=== PATIENT | male | born 1950 | race Caucasian/White ===

== ENCOUNTER 2024-03-22 14:35 | Emergency (ER) | payer MEDICARE, OTHER ==
[~2024-03-22] VITALS: Ht 170.2 cm; Wt 102.1 kg
[2024-03-22] MEDS ORDERED: APIX5TAB4 PO (14:50)
[2024-03-22] MEDS ORDERED: OLME1TAB30 PO (14:50)
[2024-03-22 17:52] VITALS: BP 154/89; O2SAT 96
== END 2024-03-22 17:52 | disposition home or self-care (01) ==
LOC: ER 14:35
DX: S01.81XA Laceration without foreign body of other part of head, initial encounter (principal); Z79.899 Other long term (current) drug therapy; Z88.0 Allergy status to penicillin; W18.39XA Other fall on same level, initial encounter; Y93.89 Activity, other specified; Y92.89 Other specified places as the place of occurrence of the external cause; Y99.8 Other external cause status
CPT/HCPCS: 70450; 70486; A4606; A4663